=== PATIENT | female | born 1945 ===

== ENCOUNTER 2018-02-06 10:29 | Emergency (ER) | payer MEDICARE ==
--- NOTE | 2018-02-06 10:51 | ED PDOC ---
HPI: Psych/Substance Abuse Time Seen by Provider: 02/06/18 10:36 Chief Complaint (Nursing): Psychiatric Evaluation History Per: EMS (Brought by EMS and [employer] from park where she was waving scissors at people. Pt paranoid and blaming all Domin[place] for her problems. Denies SI/HI.) Past Medical History - Family History Family History: States: Unknown Family Hx - Home Medications Home Medications: Ambulatory Orders Medication Instructions Recorded Unobtainable 02/06/18 - Allergies Allergies/Adverse Reactions: Allergies Allergy/AdvReac Type Severity Reaction Status Date / Time No Known Allergies Allergy Verified 02/06/18 10:40 Review of Systems ROS Statement: Except As Marked, All Systems Reviewed And Found Negative Physical Exam - Reviewed Nursing Documentation Reviewed: Yes Vital Signs Reviewed: Yes - Physical Exam Appears: Positive for: Non-toxic, No Acute Distress Head Exam: Positive for: ATRAUMATIC, NORMAL INSPECTION, NORMOCEPHALIC Skin: Positive for: Normal Color, Warm, DRY Eye Exam: Positive for: EOMI, Normal appearance, PERRL ENT: Positive for: Normal ENT Inspection Neck: Positive for: Normal, Painless ROM Cardiovascular/Chest: Positive for: Regular Rate, Rhythm Respiratory: Positive for: CNT, Normal Breath Sounds Gastrointestinal/Abdominal: Positive for: Normal Exam, Soft Back: Positive for: Normal Inspection Extremity: Positive for: Normal ROM Neurologic/Psych: Positive for: Alert, Oriented - Laboratory Results Result Diagrams: 02/06/18 12:06 02/06/18 12:06 Medical Decision Making Medical Decision Making: Medically stable for psychiatric admission Disposition - Clinical Impression Clinical Impression: Psychosis - Patient ED Disposition Is Patient to be Admitted: Transfer of Care - Disposition Disposition: Transfer of Care Disposition Time: 17:07 Condition: FAIR Forms: [employer] (Bhutanese) Patient Signed Over To: Herve Hollingsworth
[2018-02-06 12:13] LABS: BASO % 0.4 % (0.0-2.0); EOS # 0.1 K/uL (0.0-0.7); EOS % 1.6 % (0.0-4.0); HEMOGLOBIN 12.4 g/dL (12.0-16.0); LYMPH % 34.3 % (20.0-40.0); MEAN CELL VOLUME 79.4 fl (81.0-99.0); MEAN CORPUSCULAR HGB CONC 32.7 g/dL (33.0-37.0); MEAN PLATELET VOLUME 10.2 fl (7.2-11.7); MONO # 0.4 K/uL (0.0-0.8); MONO % 6.8 % (0.0-10.0); NEUT # 3.4 K/uL (1.8-7.0); NEUT % 56.9 % (50.0-75.0); NRBC % 0.1 % (0.0-0.0); RBC 4.79 Mil/uL (3.80-5.20); RED CELL DISTRIBUTION WIDTH 15.8 % (11.5-14.5)
--- NOTE | 2018-02-06 12:15 | RAD ---
Date of service: 02/06/2018 HISTORY: cough COMPARISON: No prior. FINDINGS: LUNGS: No active pulmonary disease. PLEURA: No significant pleural effusion identified, no pneumothorax apparent. CARDIOVASCULAR: No radiographic findings to suggest acute or significant cardiovascular disease. OSSEOUS STRUCTURES: No significant abnormalities. VISUALIZED UPPER ABDOMEN: Normal. OTHER FINDINGS: None. IMPRESSION: No active disease.
[2018-02-06 12:26] LABS: ALB/GLOB RATIO 1.3 (1.0-2.1); ALBUMIN 4.2 g/dL (3.5-5.0); ALT/SGPT 30 U/L (9-52); AST/SGOT 33 U/L (14-36); BLOOD UREA NITROGEN 14 mg/dl (7-17); CALCIUM 9.4 mg/dL (8.4-10.2); GFR AFRICAN-AMERICAN > 60; GFR NON-AFRICAN AMERICAN > 60
--- NOTE | 2018-02-06 14:09 | CARD ---
APPROVED REPORT Date of service: 02/06/2018 EKG Measurement Heart [id number] <Conclusion> Normal sinus rhythm with sinus arrhythmia Nonspecific T wave abnormality Abnormal ECG
[2018-02-06 14:46] LABS: BARBITURATES, UR NEGATIVE (NEGATIVE); BENZODIAZEPINES, UR NEGATIVE (NEGATIVE); OPIATES, UR NEGATIVE (NEGATIVE); PHENCYCLIDINE, UR NEGATIVE (NEGATIVE)
--- NOTE | 2018-02-06 18:53 | ED PDOC ---
- Laboratory Results Result Diagrams: 02/06/18 12:06 02/06/18 12:06 - ECG O2 Sat by Pulse Oximetry: 100 (RA) Pulse Ox Interpretation: Normal Medical Decision Making Medical Decision Makin --Care of patient from dr bailey transferred [place] [facility] [place]. 830 pm dx schizophreni accepted by [facility], waiting for bed 00:[address] Jhaveri [place] [facility] [place] Disposition - Clinical Impression Clinical Impression: Psychosis - POA Present On Arrival: None - Disposition Disposition: Transfer of Care Disposition Time: 00:00 Condition: STABLE Patient Signed Over To: Tray Jhaveri Handoff Comments: [place] [facility] [place]
--- NOTE | 2018-02-07 00:39 | ED PDOC ---
- Laboratory Results Result Diagrams: 02/06/18 12:06 02/06/18 12:06 - ECG O2 Sat by Pulse Oximetry: 100 (RA) Medical Decision Making Medical Decision Makin:30 Patient endorsed to me by Dr. Hollingsworth pending [facility] [place]. Scribe Attestation: Documented by Dixon Capps, acting as a scribe for Tray Jhaveri MD. Provider Scribe Attestation: All medical record entries made by the Scribe were at my direction and personally dictated by me. I have reviewed the chart and agree that the record accurately reflects my personal performance of the history, physical exam, medical decision making, and the department course for this patient. I have also personally directed, reviewed, and agree with the discharge instructions and disposition. Disposition - Clinical Impression Clinical Impression: Psychosis - POA Present On Arrival: None - Disposition Disposition: Transfer of Care Disposition Time: 07:00 Condition: FAIR Patient Signed Over To: Dillon Gray
--- NOTE | 2018-02-07 07:28 | ED PDOC ---
- Laboratory Results Result Diagrams: 02/06/18 12:06 02/06/18 12:06 - ECG O2 Sat by Pulse Oximetry: 94 - Progress ED Course And Treament: 700: Took over care from Dr. Jhaveri. Valdo on [facility] transfer. 726: Pt. agitated. Threat to self and staff. Will give ativan. 1402: [facility] accepted. Stable. Disposition - Clinical Impression Clinical Impression: Psychosis - POA Present On Arrival: None - Disposition Disposition: Other Institution Disposition Time: 14:03 Condition: FAIR
--- NOTE | 2018-02-07 11:37 | CP.PCM.CON ---
History of Present Illness - History of Present Illness History of Present Illness: Psychiatry consult note Patient unable to engage appropriately w/ interview due to acute sedation s/p receiving Ativan PRN due to acute agitation. When asked why she is in the hospital she stated, "the police brought me here." As per chart: 72 y/o female born in [place], residing in the [facility] since the age of 29. Patient was transported by police after receiving a report that patient was waving a child's scissor in a park. Patient have disorganized speech , flight of Ideas, tangential, reporting that she is losing her memory at times based on what "[facility]". Patient stated that at the age of 22 her family admitted her to a hospital in [place], Patient relates that she received ECT during that admission. Patient reported that after she was in the hospita she was told by everyone that she didn't had any psychiatric illness and that she had been possessed by demons. she was asked to join Jehovah witness to be helped taking the demons out. Patient stated that her family wanted her to in a psychiatric hospitals, Patient have numerous stories of people that approached her during her admission in [place], as she had a man that visit her everyday but turn not to be real. Patient states that [place] this country she went to live with a sister that she knew from the beginning prior to coming to this country, she had dreams where she witnessed in her dreams how her sister was going to harm her. Patient states that her sister place a snake in a flower pot that a had a cancer tumor in the head of the snake. Patient stated that it was done to her as she witnessed the snake coming out from the pot. Patient continue presenting very bizarre, patient don't feel that she need to be seen by a Gate Services Supervisor. Patient states during the assessment that she don't need to see crisis. Patient continue presenting with flight of ideas, speaking about [facility] [place] [facility] [place] as she stated that "they" want to take everything away from her. Patient states that she was in [employer] school and "everyone was from [place]", they hurt her by placing "rabies" on her, doing something to her to make her older, patient is not willing to accept psychiatric treatment, patient is agitated with comic writer as she stated that if comic writer can not take the "rabies" out and what she was injected to accelerate her aging, she wanted comic writer out of the room. Patient is not willing to sign for voluntary admission. Patient was screened and accepted for involuntary psychiatric admission, pending bed and transfer. Past Patient History - Past Social History Smoking Status: Unknown If Ever Smoked - CARDIAC Hx Cardiac Disorders: No Hx Hypertension: No - PULMONARY Hx Tuberculosis: No - NEUROLOGICAL HX Cerebrovascular Accident: No Hx Seizures: No - HEMATOLOGICAL/ONCOLOGICAL Hx Cancer: No Hx Human Immunodeficiency Virus (HIV): No - GENITOURINARY/GYNECOLOGICAL Hx Sexually Transmitted Disorders: No - PSYCHIATRIC Hx Substance Use: No Meds Allergies/Adverse Reactions: Allergies Allergy/AdvReac Type Severity Reaction Status Date / Time No Known Allergies Allergy Verified 02/06/18 10:40 Results - Vital Signs Recent Vital Signs: Last Vital Signs Temp 98.7 F 02/07/18 04:37 Pulse 72 02/07/18 10:22 Resp 18 02/07/18 10:22 BP 132/74 02/07/18 10:22 Pulse Ox 98 02/07/18 10:22 - Labs Result Diagrams: 02/06/18 12:06 02/06/18 12:06 Labs: Laboratory Results - last 24 hr 02/06/18 02/06/18 02/06/18 12:06 12:06 14:20 WBC 6.0 RBC 4.79 Hgb 12.4 Hct 38.0 MCV 79.4 L MCH 26.0 L MCHC 32.7 L RDW 15.8 H Plt Count 111 L MPV 10.2 Neut % (Auto) 56.9 Lymph % (Auto) 34.3 Graves % (Auto) 6.8 Eos % (Auto) 1.6 Baso % (Auto) 0.4 Neut # (Auto) 3.4 Lymph # (Auto) 2.0 Graves # (Auto) 0.4 Eos # (Auto) 0.1 Baso # (Auto) 0.0 Sodium 142 Potassium 3.5 L Chloride 107 Carbon Dioxide 23 Anion Gap 16 BUN 14 Creatinine 0.6 L Est GFR ( Amer) > 60 Est GFR (Non-Af Amer) > 60 Random Glucose 76 Calcium 9.4 Total Bilirubin 0.4 AST 33 ALT 30 Alkaline Phosphatase 69 Total Protein 7.4 Albumin 4.2 Globulin 3.2 Albumin/Globulin Ratio 1.3 Urine Opiates Screen Negative Urine Methadone Screen Negative Ur Barbiturates Screen Negative Ur Phencyclidine Scrn Negative Ur Amphetamines Screen Negative U Benzodiazepines Scrn Negative U Oth Cocaine Metabols Negative U Cannabinoids Screen Negative Alcohol, Quantitative < 10
[2018-02-07 15:24] VITALS: RESP 20
[2018-02-07 15:47] VITALS: BP 128/78; PULSE 75; TEMP 97.8
[2018-02-08 03:14] VITALS: O2SAT 100
== END 2018-02-07 15:49 | disposition short-term general hospital (02) ==
LOC: H.ER 10:29
DX: F29 Unspecified psychosis not due to a substance or known physiological condition (principal)
CPT/HCPCS: 71045; 80053; 85025; 93005; 96372; 96374; 99285; G0480; J2060